=== PATIENT | female | born 1995 ===

== ENCOUNTER 2021-06-22 05:58 | Inpatient (IN) | payer OTHER ==
[~2021-06-22] VITALS: Ht 157.5 cm; Wt 52.6 kg
[2021-06-22] MEDS ORDERED: PRENATAL TABLE1 EAC1 PO (12:04)
[2021-06-23] MEDS ORDERED: SYNTHROID50 MCG (15:32)
[2021-06-23] MEDS ORDERED: SYNTHROID100 MCG (15:32)
== END 2021-06-24 11:07 | disposition home or self-care (01) | DRG 807 ==
LOC: LDR 05:58 → OB/GYN 16:13
PROVIDERS: ADMIT Specialist; ATTEND Specialist
PROC: 10E0XZZ Delivery of Products of Conception, External Approach (ICD-10-PCS; principal; 2021-06-22)
PROC: 4A1HXCZ Monitoring of Products of Conception, Cardiac Rate, External Approach (ICD-10-PCS; 2021-06-22)
PROC: 0W8NXZZ Division of Female Perineum, External Approach (ICD-10-PCS; 2021-06-22)
DX: O80 Encounter for full-term uncomplicated delivery (principal); Z37.0 Single live birth; Z3A.38 38 weeks gestation of pregnancy; Z20.822 Contact with and (suspected) exposure to COVID-19